=== PATIENT | male | born 1950 | race Caucasian/White ===

== ENCOUNTER 2021-12-20 00:35 | Day surgery (SDC) | payer MEDICARE, SELFPAY ==
[2021-12-01 14:10] VITALS: BMI 31.4
[2021-12-20 09:19] VITALS: BP 139/70; PULSE 74; RESP 20; TEMP 36.2; O2SAT 99
[2021-12-20] MEDS: LACTATED RINGERS 1,000 ML 150 ML IV CONT (09:30)
[2021-12-20 09:31] LABS: Glucose Point of Care 130 mg/dl (65-105)
--- NOTE | 2021-12-20 09:50 | WPDANESEPPF ---
Anes - Initial Pre Proc Eval Procedure: Operation Date: 12/20/21 10:30 Proposed Procedures p Colonoscopy - Marc Cuellar MD Date/Time: 12/20/21 09:50 Surgeon: Marc Cuellar MD Pre Op Diagnosis: hx of colon polyps, positive cologuard Patient Data Age: 71 Gender: M Height: 1.7 m Weight: 91.1 kg Last Vital Signs Temp 97.1 F L 12/20/21 09:19 Pulse 74 12/20/21 09:19 Resp 20 12/20/21 09:19 BP 139/70 12/20/21 09:19 Pulse Ox 99 12/20/21 09:19 O2 Del Method Room Air 12/20/21 09:19 Allergies Allergy/AdvReac Type Severity Reaction Status Date / Time No Known Allergies Allergy Unknown Verified 12/20/21 09:16 Home Medications Medication Instructions Recorded Confirmed Type aspirin 81 mg tablet,delayed 81 mg PO DAILY 07/20/19 12/01/21 History release lenzfpqg-les-iozkv acid 300 1 tablet PO DAILY 07/20/19 12/01/21 History mcg-lycopene 600 mcg-lutein 300 mcg tablet (Centrum Silver Ultra Men's) sildenafil 50 mg tablet (Viagra) 50 mg PO DAILY PRN Sexual Activity 07/20/19 12/01/21 History diphenhydramine HCl 25 mg capsule 25 mg PO HS PRN Sleep 12/01/21 12/01/21 History (Benadryl) olmesartan 20 mg tablet 20 mg PO DAILY 12/01/21 12/01/21 History simvastatin 10 mg tablet 10 mg PO DAILY 12/01/21 12/01/21 History betamethasone dipropionate 0.05 % See Rx Instructions .Route 12/19/21 12/20/21 Rx lotion .COMPLEX #60 mL metformin 500 mg tablet,extended See Rx Instructions .Route 12/19/21 12/20/21 Rx release 24 hr .COMPLEX #90 tabs omeprazole 20 mg capsule,delayed See Rx Instructions .Route 12/19/21 12/20/21 Rx release .COMPLEX #90 caps Laboratory Tests 12/20/21 09:22 POC Capillary Glucose 130 mg/dl H mg/dl (65-105) Patient hx anesthesia problems: none Family hx anesthesia problems: none Results Review: All pre-operative results and documents have been reviewed as part of the pre-operative evaluation. [facility] Past Medical History Medical History Hepatitis C antibody test negative (06/07/18) Renal and ureteric calculus Surgical History Surgical History H/O colonoscopy (~2013) Hx of esophagogastroduodenoscopy (~09/24/08) Family History Family History Mother Family history of malignant neoplasm of uterus Other No family history of cardiovascular disease Social History Social History (Updated 11/06/21 @ 15:05 by DANETTE Osullivan) Smoking status: Former smoker Tobacco type: cigarettes Alcohol intake: current Drinks per week: 2 Substance use: current Substance use type: marijuana Living arrangements: with family Spiritual care concerns: No Anes - Eval Final PreProcedure Day of Procedure 12/20/21 09:50 Patient weight: obese Heart: regular rate and rhythm Lungs: clear to auscultation Airway: Mallampati scale class III Neurological: alert and oriented Last oral intake: >/= 8 hours ASA classification: III Emergent: no Anesthetic plan: proceed Anesthesia type and monitoring: general GIVS and standard monitoring Results Review: All pre-operative results and documents have been reviewed as part of the pre-operative evaluation. Informed Consent: The patient's anesthetic plan and its attendant risks and benefits were discussed with the patient/family/POA. Questions were solicited and answers provided to the satisfaction of the patient/family/POA.
--- NOTE | 2021-12-20 09:55 | WPDGICN ---
Assessment and Plan Assessment and plan (1) Positive colorectal cancer screening using Cologuard test: Code(s): R19.5 - Other fecal abnormalities Status: Acute Assessment and Plan: Patient has had a positive screening Cologuard test. For this reason colonoscopy will be performed today. Further recommendations will be given after endoscopy. GI Consult Note Consult date/time: 12/20/21 09:55 Reason for consult: Positive Cologuard test HPI: Chaim Oakley is a 71 year old male referred for colonoscopy because of positive screening Cologuard test. Patient reports his current weight appetite and bowel movements are normal. He denies abdominal pain. Patient has had no bleeding. Patient does have a prior history of hyperplastic colon polyp removed from the colon 2008. Family history is noncontributory. There is no family history of colon or rectal disease. He presents today for neoplasia screening because of Cologuard test being positive. Review of Systems Review of Systems: Review of systems noncontributory. [facility] Past Medical History Medical History Hepatitis C antibody test negative (06/07/18) Renal and ureteric calculus Surgical History Surgical History H/O colonoscopy (~2013) Hx of esophagogastroduodenoscopy (~09/24/08) Family History Family History Mother Family history of malignant neoplasm of uterus Other No family history of cardiovascular disease Social History Social History (Updated 11/06/21 @ 15:05 by DANETTE Osullivan) Smoking status: Former smoker Tobacco type: cigarettes Alcohol intake: current Drinks per week: 2 Substance use: current Substance use type: marijuana Living arrangements: with family Spiritual care concerns: No Meds Home Medications and Allergies Home Medications Medication Instructions Recorded Confirmed Type aspirin 81 mg tablet,delayed 81 mg PO DAILY 07/20/19 12/01/21 History release xwqqqhxq-gam-byusv acid 300 1 tablet PO DAILY 07/20/19 12/01/21 History mcg-lycopene 600 mcg-lutein 300 mcg tablet (Centrum Silver Ultra Men's) sildenafil 50 mg tablet (Viagra) 50 mg PO DAILY PRN Sexual Activity 07/20/19 12/01/21 History diphenhydramine HCl 25 mg capsule 25 mg PO HS PRN Sleep 12/01/21 12/01/21 History (Benadryl) olmesartan 20 mg tablet 20 mg PO DAILY 12/01/21 12/01/21 History simvastatin 10 mg tablet 10 mg PO DAILY 12/01/21 12/01/21 History betamethasone dipropionate 0.05 % See Rx Instructions .Route 12/19/21 12/20/21 Rx lotion .COMPLEX #60 mL metformin 500 mg tablet,extended See Rx Instructions .Route 12/19/21 12/20/21 Rx release 24 hr .COMPLEX #90 tabs omeprazole 20 mg capsule,delayed See Rx Instructions .Route 12/19/21 12/20/21 Rx release .COMPLEX #90 caps Allergies Allergy/AdvReac Type Severity Reaction Status Date / Time No Known Allergies Allergy Unknown Verified 12/20/21 09:16 Vital Signs Vital Signs - 24 hr 12/20/21 09:19 Temperature 97.1 F L Pulse Rate 74 Respiratory Rate 20 Blood Pressure 139/70 Pulse Oximetry 99 Oxygen Delivery Room Air Exam Narrative: Physical exam reveals patient to be alert. Vital signs stable. HEENT exam is unremarkable. Patient is anicteric. Lungs are clear to auscultation and percussion. Heart is without murmur or extra sounds. Abdominal exam bowel sounds are present soft nontender with no organomegaly. Digital external rectal exam is normal.
[2021-12-20 10:56] VITALS: BP 113/63; PULSE 73; RESP 26; O2SAT 97
[2021-12-20 11:06] VITALS: BP 124/70; PULSE 67; RESP 18; O2SAT 99
[2021-12-20 11:16] VITALS: BP 142/87; PULSE 70; RESP 16; O2SAT 97
== END 2021-12-20 11:25 | disposition home or self-care (01) ==
PROVIDERS: PCP Family Medicine; Visit Provider Internal Medicine Gastroenterology
PROC: 0DJD8ZZ Inspection of Lower Intestinal Tract, Via Natural or Artificial Opening Endoscopic (ICD-10-PCS; CPT 45378; principal; 2021-12-20 10:30)
DX: R19.5 Other fecal abnormalities (principal); D12.5 Benign neoplasm of sigmoid colon; K57.30 Diverticulosis of large intestine without perforation or abscess without bleeding; K63.5 Polyp of colon; Z87.891 Personal history of nicotine dependence; Z79.82 Long term (current) use of aspirin; Z79.84 Long term (current) use of oral hypoglycemic drugs; F12.90 Cannabis use, unspecified, uncomplicated; E66.9 Obesity, unspecified; Z68.31 Body mass index [BMI] 31.0-31.9, adult
CPT/HCPCS: 45385; 82948; 88305; J2001; J2704; J7120

== ENCOUNTER 2022-05-03 03:54 | Day surgery (SDC) | payer MEDICARE, SELFPAY ==
--- NOTE | 2022-04-13 14:26 | PC.NURSE ---
Patient states no changes in health history or medication list since phone calls. Updated on date and time for day of the procedure.
--- NOTE | 2022-05-02 16:13 | PM.HPGS ---
History of Present Illness History of Present Illness Consent: Risks, benefits, and alternatives have been discussed and questions answered. Patient agrees to proceed with procedure. Chief complaint: Abnormal CT scan Narrative: Chaim Oakley is a 71 year old male Referred for EGD for investigation of an abnormal CT scan. CT scan showed thickening of the antrum and pylorus. Review of Systems Review of Systems: All systems reviewed & are unremarkable except as noted in HPI and below PMFSH Past Medical History Medical History Hepatitis C antibody test negative (06/07/18) Renal and ureteric calculus Surgical History Surgical History H/O colonoscopy (~2013) Hx of esophagogastroduodenoscopy (~09/24/08) Family History Family History Mother Family history of malignant neoplasm of uterus Other No family history of cardiovascular disease Social History Social History Smoking packs per day: 1 Smoking cigarettes per day: 20.0 Years smoked: 10 Smoking pack-years: 10.00 Smoking status: Former smoker Tobacco type: cigarettes Alcohol intake: current Drinks per week: 2 Substance use: current Substance use type: marijuana Living arrangements: with family Spiritual care concerns: No Meds Home Medications and Allergies Home Medications Medication Instructions Recorded Confirmed Type aspirin 81 mg tablet,delayed 81 mg PO DAILY 07/20/19 03/21/22 History release yvroygbn-zqv-qgwew acid 300 1 tablet PO DAILY 07/20/19 03/21/22 History mcg-lycopene 600 mcg-lutein 300 mcg tablet (Centrum Silver Ultra Men's) sildenafil 50 mg tablet (Viagra) 50 mg PO DAILY PRN Sexual Activity 07/20/19 03/21/22 History diphenhydramine HCl 25 mg capsule 25 mg PO HS PRN Sleep 12/01/21 03/21/22 History (Benadryl) olmesartan 20 mg tablet 20 mg PO DAILY 12/01/21 03/21/22 History betamethasone dipropionate 0.05 % See Rx Instructions .Route 12/19/21 03/21/22 Rx lotion .COMPLEX #60 mL metformin 500 mg tablet,extended See Rx Instructions .Route 12/19/21 03/21/22 Rx release 24 hr .COMPLEX #90 tabs omeprazole 20 mg capsule,delayed See Rx Instructions .Route 12/19/21 03/21/22 Rx release .COMPLEX #90 caps simvastatin 10 mg tablet 10 mg PO DAILY 03/21/22 03/21/22 History Allergies Allergy/AdvReac Type Severity Reaction Status Date / Time No Known Allergies Allergy Unknown Verified 05/03/22 07:46 Exam Const: General: alert Orientation/consciousness: patient oriented x3 Resp: Auscultation: clear to auscultation bilaterally Cardio: Rhythm: regular rhythm GI: GI Palp: Yes Soft to palpation and No Tenderness to palpation present (GI) Neuro: General: patient oriented x3 Assessment and Plan Assessment and plan (1) Abnormal CT scan, gastrointestinal tract: Code(s): R93.3 - Abnormal findings on diagnostic imaging of other parts of digestive tract Status: Acute Assessment and Plan: EGD with possible biopsy or dilatation or cautery.
[2022-05-03 07:48] VITALS: BP 148/102; PULSE 80; RESP 18; TEMP 36.3; O2SAT 98
[2022-05-03] MEDS: LACTATED RINGERS 1,000 ML 150 ML IV CONT (08:01)
[2022-05-03 08:02] LABS: Glucose Point of Care 130 mg/dl (65-105)
--- NOTE | 2022-05-03 08:44 | WPDANESEPPF ---
Anes - Initial Pre Proc Eval Procedure: Operation Date: 05/03/22 09:00 Proposed Procedures p Esophagogastroduodenoscopy - Louis Paulino MD Date/Time: 05/03/22 08:44 Surgeon: Louis Paulino MD Pre Op Diagnosis: Abnormal CT scan Patient Data Age: 71 Gender: M Height: 1.7 m Weight: 89.4 kg Last Vital Signs Temp 97.3 F L 05/03/22 07:48 Pulse 80 05/03/22 07:48 Resp 18 05/03/22 07:48 BP 148/102 H 05/03/22 07:48 Pulse Ox 98 05/03/22 07:48 O2 Del Method Room Air 05/03/22 07:48 Allergies Allergy/AdvReac Type Severity Reaction Status Date / Time No Known Allergies Allergy Unknown Verified 05/03/22 07:46 Home Medications Medication Instructions Recorded Confirmed Type aspirin 81 mg tablet,delayed 81 mg PO DAILY 07/20/19 03/21/22 History release hoblmisr-whk-wdnzr acid 300 1 tablet PO DAILY 07/20/19 03/21/22 History mcg-lycopene 600 mcg-lutein 300 mcg tablet (Centrum Silver Ultra Men's) sildenafil 50 mg tablet (Viagra) 50 mg PO DAILY PRN Sexual Activity 07/20/19 03/21/22 History diphenhydramine HCl 25 mg capsule 25 mg PO HS PRN Sleep 12/01/21 03/21/22 History (Benadryl) olmesartan 20 mg tablet 20 mg PO DAILY 12/01/21 03/21/22 History betamethasone dipropionate 0.05 % See Rx Instructions .Route 12/19/21 03/21/22 Rx lotion .COMPLEX #60 mL metformin 500 mg tablet,extended See Rx Instructions .Route 12/19/21 03/21/22 Rx release 24 hr .COMPLEX #90 tabs omeprazole 20 mg capsule,delayed See Rx Instructions .Route 12/19/21 03/21/22 Rx release .COMPLEX #90 caps simvastatin 10 mg tablet 10 mg PO DAILY 03/21/22 03/21/22 History Laboratory Tests 05/03/22 07:57 POC Capillary Glucose 130 mg/dl H mg/dl (65-105) Patient hx anesthesia problems: none Family hx anesthesia problems: none Results Review: All pre-operative results and documents have been reviewed as part of the pre-operative evaluation. [facility] Past Medical History Medical History Hepatitis C antibody test negative (06/07/18) Renal and ureteric calculus Surgical History Surgical History H/O colonoscopy (~2013) Hx of esophagogastroduodenoscopy (~09/24/08) Family History Family History Mother Family history of malignant neoplasm of uterus Other No family history of cardiovascular disease Social History Social History Smoking packs per day: 1 Smoking cigarettes per day: 20.0 Years smoked: 10 Smoking pack-years: 10.00 Smoking status: Former smoker Tobacco type: cigarettes Alcohol intake: current Drinks per week: 2 Substance use: current Substance use type: marijuana Living arrangements: with family Spiritual care concerns: No Anes - Eval Final PreProcedure Day of Procedure 05/03/22 08:44 Patient weight: obese Heart: regular rate and rhythm Lungs: clear to auscultation Airway: Mallampati scale class III Neurological: alert and oriented Last oral intake: >/= 8 hours ASA classification: III Emergent: no Anesthetic plan: proceed Anesthesia type and monitoring: general GIVS and standard monitoring Results Review: All pre-operative results and documents have been reviewed as part of the pre-operative evaluation. Informed Consent: The patient's anesthetic plan and its attendant risks and benefits were discussed with the patient/family/POA. Questions were solicited and answers provided to the satisfaction of the patient/family/POA.
[2022-05-03 09:21] VITALS: BP 108/44; PULSE 76; RESP 18; O2SAT 97
[2022-05-03 09:31] VITALS: BP 127/70; PULSE 73; RESP 18; O2SAT 96
[2022-05-03 09:41] VITALS: BP 134/90; PULSE 68; RESP 18; O2SAT 97
== END 2022-05-03 09:51 | disposition home or self-care (01) ==
PROVIDERS: PCP Family Medicine; Visit Provider Internal Medicine Gastroenterology
PROC: 0DJ08ZZ Inspection of Upper Intestinal Tract, Via Natural or Artificial Opening Endoscopic (ICD-10-PCS; CPT 43235; principal; 2022-05-03 09:00)
DX: K22.2 Esophageal obstruction (principal); K31.7 Polyp of stomach and duodenum; K21.9 Gastro-esophageal reflux disease without esophagitis; Z79.84 Long term (current) use of oral hypoglycemic drugs; Z79.82 Long term (current) use of aspirin; Z87.891 Personal history of nicotine dependence; E66.9 Obesity, unspecified; Z68.30 Body mass index [BMI] 30.0-30.9, adult
CPT/HCPCS: 43239; 82948; 88305; J2704; J7120

== ENCOUNTER 2024-03-12 07:03 | Outpatient (NON) | payer MEDICARE, SELFPAY | END 2024-03-12 07:04 | disposition home or self-care (01) | PROVIDERS: PCP Family Medicine; Visit Provider Plastic Surgery | DX: R22.30 Localized swelling, mass and lump, unspecified upper limb (principal) | CPT/HCPCS: 88304; 88305 ==

== ENCOUNTER 2024-03-12 09:08 | Day surgery (SDC) | payer MEDICARE, SELFPAY ==
--- NOTE | 2024-03-02 13:33 | PC.NURSE ---
SPOKE WITH DR ZIEGLER REGARDING PT HEALTH HX. NO BMP OR EKG NEEDED. CHECK BLOOD SUGAR DOS.
[2024-03-02 13:41] VITALS: BMI 30.7
--- NOTE | 2024-03-11 11:16 | WPDANESEPPF ---
Anes - Initial Pre Proc Eval Procedure: Operation Date: 03/12/24 11:00 Proposed Procedures p Excision Mucous Cyst Right Index and Ring Finger - Dontrell Gavin MD Date/Time: 03/11/24 11:16 Surgeon: Dontrell Gavin MD Pre Op Diagnosis: Ganglion Cyst Right Index and Ring Finger Patient Data Age: 73 Gender: M Height: 1.7 m Weight: 89 kg Allergies Allergy/AdvReac Type Severity Reaction Status Date / Time No Known Allergies Allergy Unknown Verified 03/12/24 09:23 Home Medications Medication Instructions Recorded Confirmed Type aspirin 81 mg tablet,delayed 81 mg PO DAILY 07/20/19 03/12/24 History release fhmqbeoj-wv-pppvx 300 mcg-K 60 1 tablet PO DAILY 07/20/19 03/12/24 History mcg-lycop 600 mcg-lutein 300 mcg tablet (Centrum Silver Ultra Men's) sildenafil 50 mg tablet (Viagra) 50 mg PO DAILY PRN Sexual Activity 07/20/19 03/12/24 History diphenhydramine HCl 25 mg capsule 25 mg PO HS PRN Sleep 12/01/21 03/12/24 History (Benadryl) omega 6-xzp-wtu-fish oil 300 1 cap PO DAILY 02/19/23 03/12/24 History mg-1,000 mg capsule (Fish Oil) betamethasone dipropionate 0.05 % 1 applic topical BID #60 mL 12/10/23 03/12/24 Rx lotion olmesartan 20 mg tablet 20 mg PO DAILY 12/10/23 03/12/24 History simvastatin 10 mg tablet 10 mg PO HS 12/10/23 03/12/24 History omeprazole 20 mg capsule,delayed 20 mg PO DAILY #90 caps 01/13/24 03/12/24 Rx release metformin 500 mg tablet,extended 500 mg PO DAILY #90 tabs 03/06/24 03/12/24 Rx release 24 hr tramadol 50 mg tablet 50 mg PO Q6H PRN pain #12 tabs 03/12/24 Rx Patient hx anesthesia problems: none Family hx anesthesia problems: none Results Review: All pre-operative results and documents have been reviewed as part of the pre-operative evaluation. [facility] Past Medical History Medical History (Updated 03/11/24 @ 11:17 by Vikash Healy DO) Diabetes type 2, controlled GERD (gastroesophageal reflux disease) Hepatitis C antibody test negative (06/07/18) Hyperlipidemia Hypertension Renal and ureteric calculus Surgical History Surgical History H/O colonoscopy (~2013) Hx of esophagogastroduodenoscopy (~09/24/08) Family History Family History Mother Family history of malignant neoplasm of uterus Other No family history of cardiovascular disease Social History Social History (Updated 01/13/24 @ 13:57 by Alice Quijano) Smoking packs per day: 1 Smoking cigarettes per day: 20.0 Years smoked: 10 Smoking pack-years: 10.00 Smoking status: Former smoker Tobacco type: cigarettes Second hand tobacco smoke exposure: Yes Smoking end date: 07/22/89 Alcohol intake: current Drinks per week: 2 Substance use: current Substance use type: marijuana Other substance usage details: 6 TIMES PER WEEK Lack of Transportation: No Lack of Food: Never True Current Housing: I Have Housing Concerned About Future Housing: No Difficulty Paying Gas/Electric Bills: No Difficulty Paying for Meds: No Currently Unemployed: No Education: Bachelor's Degree Difficulty w/ Childcare or Family Care: No Living arrangements: with family Spiritual care concerns: No Anes - Eval Final PreProcedure Day of Procedure 03/11/24 11:16 Patient weight: obese Heart: regular rate and rhythm Lungs: clear to auscultation Airway: Mallampati scale class II Neurological: alert and oriented Last oral intake: >/= 8 hours ASA classification: III Emergent: no Anesthetic plan: proceed Anesthesia type and monitoring: general GIVS and standard monitoring Results Review: All pre-operative results and documents have been reviewed as part of the pre-operative evaluation. Informed Consent: The patient's anesthetic plan and its attendant risks and benefits were discussed with the patient/family/POA. Questions were solicited and a
--- NOTE | 2024-03-12 07:03 | WPDHPUPDATE1 ---
History and Physical Update Update Date/Time: 03/12/24 07:03 Patient seen and examined in pre-operative holding area. No interval change in medical history or symptoms. Patient recalls previous discussion of benefits and alternatives to procedure. Continues to desire to proceed with right index and ring finger mucous cyst excision. Reviewed procedure, post-op expectations and risks including but not limited to bleeding, infection, injury to tendon/nerve/vessel, decreased hand function, stiffness, RSD, no change or worsening of symptoms, recurrence. I discussed the possible use of assistants and their participation in the case. Patient stated understanding and signed the consent form wishing to proceed.
--- NOTE | 2024-03-12 07:04 | P.OP_ITS ---
Procedure Note - Detailed Date of Procedure 03/12/24 Pre-op Diagnosis digital mucous Cyst Right Index and Ring Finger Post-op Diagnosis Same (and right index finger distal phalanx osteophyte) Procedure Performed right index and ring finger mucous cyst excision with right index finger osteophyte excision and right ring finger adjacent tissue transfer Surgeon Dontrell Gavin MD Client Business Manager dominique mosher pa-c Anesthesia MAC Description of Procedure INFORMED CONSENT: The patient was seen and examined and marked in the pre-op area.? The patient signed the consent form. PROCEDURE IN DETAIL:The patient taken back to OR on the stretcher in supine position. Time out performed with anesthesia, surgeon and staff agreeing on patient's name site and surgery to be performed SCDs were placed on the lower extremities and inflated. A tourniquet was placed on {right/} upper extremity and antibiotics given IV After anesthesia administered sedation I injected {6}cc 1%lido and 0.5% marcaine plain for digital blocks in the palm The?{right upper extremity}?was prepped and draped in sterile fashion the??{right upper extremity} was? exsanguinated with Esmarch bandage and tourniquet inflated to 250mmHg I took my attention 1st to the right ring finger were proceeded with making an elliptical incision around the thinned affected skin over the cyst extending it proximally and distally to elevate skin flaps back to the PIP joint with a 15 blade scalpel. I proceeded with circumferential dissection around the cyst back to the IP joint capsule with 15 blade. I irrigated with normal saline. no osteophyte was identified The capsular defect was closed with 5-0 Vicryl suture after bipolar cautery. I was unable to close the skin defect primarily even with wide undermining so I proceeded with extending my incision proximally to create a rotation advancement flap to achieve closure. After irrigation with normal saline this flap was then closed with 4-0 chromic suture. I now took my attention to the right index finger where I proceeded with making a semi circular incision over the cyst back to the IP joint through skin and dermis with a 15 blade scalpel. I elevated skin flaps and identified the cyst. I proceeded with circumferential dissection around the cyst back to the P IP joint where it was transected with bipolar cautery. A larger osteophyte coming off of the distal phalanx was identified. I reflected the periosteum and rongeured this until flat. I irrigated with normal saline. Bipolar cautery was used. I repaired the capsular defect with 5-0 Vicryl suture. The skin was closed with 4-0 chromic. A dressing of xeroform , 4x4, cindy, and tube gauze was applied after the tourniquet was let down noting the hand was warm and well perfused. The patient was then awaken from anesthesia and transferred to the recovery room in stable condition.? Complications - none EBL- 0cc Disposition - home in stable conditions dominique mosher pa-c was essential for positioning, retraction, closure and dressing placement [facility] [place] Billing Surgery - Charge Forward: Surgery Billing ([id number] same for dominique adding modifier )
[2024-03-12 09:27] VITALS: BP 160/71; PULSE 84; RESP 17; TEMP 36.9; O2SAT 97
[2024-03-12] MEDS: LACTATED RINGERS 1,000 ML 30 ML IV CONT (09:41)
[2024-03-12 09:42] LABS: Glucose Point of Care 137 mg/dl (65-105)
--- NOTE | 2024-03-12 09:42 | SUR.PREOP ---
MD Healy notified of pt BP 160/71. No new orders at this time
[2024-03-12] MEDS: ceFAZolin SODIUM 2 GM/20 ML SW SYRINGE IV PUSH (09:53)
[2024-03-12] MEDS: LIDOCAINE HCL 1% LOCAL INJ 10 ML VIAL 5 ML INFILTRATE (10:19)
[2024-03-12 10:23] VITALS: BP 135/78; PULSE 84; RESP 16; O2SAT 94
[2024-03-12 10:33] VITALS: BP 125/76; PULSE 80; RESP 16; O2SAT 93
[2024-03-12 10:43] VITALS: BP 135/91; PULSE 71; RESP 16; O2SAT 93
--- NOTE | 2024-03-12 11:10 | WPDANESPN ---
Anes - Prog Note Post-Op Date/Time: 03/12/24 11:10 Cardiovascular status: normal Respiratory status: normal Airway patency: baseline Mental status: baseline Post-Op hydration status: normal Vital Signs: Last Vital Signs Temp 36.9 C 03/12/24 09:27 Pulse 71 03/12/24 10:43 Resp 16 03/12/24 10:43 BP 135/91 H 03/12/24 10:43 Pulse Ox 93 03/12/24 10:43 O2 Del Method Room Air 03/12/24 10:43 Pain Score (VAS): 0 I/O: Intake & Output 03/11/24 03/12/24 03/12/24 23:59 07:59 15:59 Intake Total 150 Balance 150 03/12/24 09:37 POC Capillary Glucose 137 H Post-procedural complaints: none Patient Feedback: Patient satisfied with anesthetic care. Other Findings: Patient vital signs back to baseline. Patient denies nausea and vomiting. Patient's pain under control. Patient OK for discharge.
== END 2024-03-12 10:51 | disposition home or self-care (01) ==
LOC: ASC 09:10
PROVIDERS: PCP Family Medicine; Visit Provider Plastic Surgery
PROC: (CPT 26210; principal; 2024-03-12 11:00)
DX: M71.341 Other bursal cyst, right hand (principal); M85.641 Other cyst of bone, right hand
CPT/HCPCS: 26210; 26160 ×2